=== PATIENT | female | born 1995 | race Caucasian/White ===

== ENCOUNTER 2016-07-02 19:43 | Emergency (ER) | payer OTHER ==
[2016-07-02 20:21] VITALS: BP 147/93
[2016-07-02] MEDS ORDERED: Acetaminophen TAB* 325 MG PO ONE (20:56)
--- NOTE | 2016-07-02 21:03 | UC ---
FLU HPI - HPI Summary HPI Summary: c/o generalized malaise, fever, chills, myalgia and cough X 1 day. - History of Current Complaint Chief Complaint: UCGeneralIllness Stated Complaint: COUGH/FEVER/CHILLS Time Seen by Provider: 07/02/16 20:38 Hx Obtained From: Patient Hx Last Menstrual Period: 06/19/16 ?: No Onset/Duration: Sudden Onset, Lasting Days Severity Currently: Mild Severity Initially: Mild Associated Signs & Symptoms: Positive: Fever, Myalgia, Cough, Vomiting - reports vomiting X3 after episode of coughing - Allergy/Home Medications Allergies/Adverse Reactions: Allergies Allergy/AdvReac Type Severity Reaction Status Date / Time No Known Allergies Allergy Verified 07/02/16 20:21 Home Medications: Home Medications Azelastine/Fluticasone FLORENCIA(NF [Dymista(NF)] 1 spray BOTH NARES DAILY 07/02/16 [ History Confirmed 07/02/16] Dextromethorphan-Phenylephrine [Day-Time Cold/Flu Relief 10-5-325 mg/15Ml] 1 liq PO ONCE PRN 07/02/16 [History Confirmed 07/02/16] Fluticasone Propionate (Nasal) [Eql Fluticasone Propionat] 100 mcg NA DAILY 09/12 [History Confirmed 07/02/16] Ibuprofen TAB* [Advil TAB*] 400 mg PO Q6H PRN 07/02/16 [History Confirmed ] PMH/Surg Hx/FS Hx/Imm Hx Previously Healthy: Yes - Surgical History Surgical History: None - Family History Known Family History: Positive: Other - positive [facility] of [place] - Social History Occupation: Student Lives: With Family Alcohol Use: Weekly Substance Use Type: None Smoking Status (MU): Never Smoked Tobacco - Immunization History Most Recent Influenza Vaccination: FALL 2015 Review of Systems Constitutional: Fever, Chills, Fatigue Skin: Negative Eyes: Negative ENT: Negative, Other - cough Respiratory: Cough Cardiovascular: Negative Gastrointestinal: Vomiting - X3 after coughing Genitourinary: Negative Motor: Negative Neurovascular: Negative Musculoskeletal: Myalgia Neurological: Negative Psychological: Negative All Other Systems Reviewed And Are Negative: Yes Physical Exam Triage Information Reviewed: Yes Appearance: Well-Appearing Vital Signs: Initial Vital Signs Temp 100.6 F 07/02/16 20:15 Resp 16 02/04/17 20:15 BP 147/93 07/02/16 20:15 Pulse Ox 100 07/02/16 20:15 Vital Signs Reviewed: Yes Eye Exam: Normal ENT Exam: Other ENT: Positive: Nasal congestion, TM bulging - right TM Neck exam: Normal Respiratory Exam: Normal Cardiovascular Exam: Normal Musculoskeletal Exam: Normal Neurological Exam: Normal Psychological Exam: Normal Skin Exam: Normal Flu Course/Dx - Differential Dx/Diagnosis Differential Diagnosis/HQI/PQRI: Bronchitis, Influenza, Upper Respiratory Infection Provider Diagnoses: Influenza A Discharge - Discharge Plan Condition: Stable Disposition: HOME Patient Education Materials: Influenza (ED) Forms: *School Release Referrals: Non Staff,Doctor [Primary Care Provider] - [facility] [Outside]
== END 2016-07-02 21:43 | disposition home or self-care (01) ==
LOC: UCCORT 19:43
DX: J09.X2 Influenza due to identified novel influenza A virus with other respiratory manifestations (principal)
CPT/HCPCS: 87502; 99212; A9270-GY; G0463